=== PATIENT | male | born 1980 | race African-American/Black ===

== ENCOUNTER 2020-10-17 20:30 | Emergency (ER) | payer SELFPAY ==
[~2020-10-17] VITALS: Ht 177.8 cm; Wt 100.0 kg
[2020-10-17 20:41] VITALS: BP 161/96
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
[2020-10-17] MEDS ORDERED: NEOMY/BACITR/POLYMYXIN OINT PACKET. TP ONE (21:15)
[2020-10-17 21:18] LABS: BASO # 0.2 x10^3/uL (0.0-0.2); BASO % 1 % (0-3); EOS # 0.1 x10^3/uL (0.0-0.7); EOS % 1 % (0-3); HEMATOCRIT 41.5 % (39.0-53.0); HEMOGLOBIN 13.7 g/dL (13.0-17.5); LYMPH # 3.2 x10^3/uL (1.0-4.8); LYMPH % 24 % (24-48); MEAN CORPUSCULAR HEMOGLOBIN 32 pg (25-35); MEAN CORPUSCULAR HGB CONC 33 g/dL (31-37); MEAN CORPUSCULAR VOLUME 97 fL (79-100); MONO # 0.9 x10^3/uL (0.0-1.1); MONO % 7 % (0-9); NEUT % 67 % (31-73); PLATELET COUNT 347 x10^3/uL (140-400); RED BLOOD COUNT 4.28 x10^6/uL (4.30-5.70); RED CELL DISTRIBUTION WIDTH 14.6 % (11.5-14.5); WHITE BLOOD COUNT 13.4 x10^3/uL (4.0-11.0)
[2020-10-17 21:26] LABS: CALCIUM 9.2 mg/dL (8.5-10.1); GFR 99.6; POTASSIUM 3.1 mmol/L (3.5-5.1)
[2020-10-17 21:32] LABS: ALBUMIN 3.2 g/dL (3.4-5.0); ALBUMIN/GLOBULIN RATIO 0.9 (1.0-1.7); TOTAL BILIRUBIN 0.6 mg/dL (0.2-1.0); TOTAL PROTEIN 6.6 g/dL (6.4-8.2)
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
--- NOTE | 2020-10-17 22:21 | RAD ---
Exam: Left elbow 3 views. Left humerus 2 views. Right hand 3 views INDICATION: Rolled rash, pain in the arm TECHNIQUE: Frontal and lateral views the left humerus. Frontal, lateral and oblique views of the left elbow. Frontal, lateral oblique views of the right hand Comparisons: None FINDINGS: Elbow: Bone mineralization is normal. No acute or healed fractures. Soft tissues are unremarkable. Joint spa lencho are well-maintained. Humerus: Bone mineralization is normal. No acute or healed fractures. Soft tissues are unremarkable. Joint spa len[place] are well-maintained. Hand: Bone mineralization is normal. No acute or healed fractures. Soft tissues are unremarkable. Joint spa len[place] are well-maintained. IMPRESSION: 1. No acute osseous abnormality of the right hand. 2. No acute osseous abnormality of the left humerus 3. No acute osseous abnormality left elbow Electronically signed by: Cori Guillermo MD (10/17/2020 10:19 PM) [facility]
[2020-10-17] MEDS ORDERED: LIDOCAINE 1% Multi-Dose 20 ML VIAL. ONE (23:24)
[2020-10-17] MEDS ORDERED: NEOM28OI21 TP (23:29)
== END 2020-10-18 00:21 | disposition home or self-care (01) ==
LOC: ER 20:30
DX: S01.81XA Laceration without foreign body of other part of head, initial encounter (principal); S40.812A Abrasion of left upper arm, initial encounter; V27.4XXA Motorcycle driver injured in collision with fixed or stationary object in traffic accident, initial encounter; Y92.488 Other paved roadways as the place of occurrence of the external cause; Y93.89 Activity, other specified; Y99.8 Other external cause status; F17.200 Nicotine dependence, unspecified, uncomplicated
CPT/HCPCS: 12011; 36415; 70450; 72125; 73060; 73080; 73130; 80053; 85025; 99285; G0480

== ENCOUNTER 2020-10-24 09:23 | Emergency (ER) | payer SELFPAY ==
[~2020-10-24] VITALS: Ht 188 cm; Wt 136.0 kg
[~2020-10-24 09:23] MED LIST: NEOM28OI21 TP
[2020-10-24 11:52] VITALS: BP 147/96
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
== END 2020-10-24 13:00 | disposition home or self-care (01) ==
LOC: ER 09:23
DX: M79.10 Myalgia, unspecified site (principal); F17.200 Nicotine dependence, unspecified, uncomplicated
CPT/HCPCS: 99281

== ENCOUNTER 2021-01-28 20:47 | Emergency (ER) | payer MEDICAID ==
[~2021-01-28] VITALS: Ht 182.9 cm; Wt 90.9 kg
[~2021-01-28 20:47] MED LIST changes: -NEOM28OI21 TP; +NEOM28OI48 TP
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
[2021-01-28] MEDS ORDERED: ETOMIDATE 20 MG/10 ML VIAL. IV ONE (21:30)
[2021-01-28] MEDS ORDERED: fentaNYL PF VIAL 100 MCG/2 ML VIAL IVP ONE (21:30)
[2021-01-28] MEDS ORDERED: IV NORMAL SALINE 1000ML BAG 1,000 ML IV ONE (21:30)
--- NOTE | 2021-01-28 21:40 | RAD ---
Exam: Right shoulder 2 views INDICATION: Pain TECHNIQUE: Frontal view of the right shoulder and transscapular Y views Comparisons: None FINDINGS: There is a anterior right shoulder dislocation. No acute or healed fractures. Visualized soft tissues are unremarkable. Joint spaces are well-maintained. IMPRESSION: Right anterior shoulder dislocation. Electronically signed by: Cori Guillermo MD (01/28/2021 9:37 PM) [facility]
[2021-01-28 21:45] VITALS: BP 112/69
[2021-01-28 22:03] VITALS: BP 152/97
--- NOTE | 2021-01-28 22:58 | RAD ---
Exam: Right shoulder one view INDICATION: Status post sedation with reduction TECHNIQUE: Frontal view of the right shoulder Comparisons: None FINDINGS: Improved alignment at the right glenohumeral joint. Bone mineralization is normal. No acute or healed fractures. Joint spaces are well-maintained. IMPRESSION: Improved alignment at the right glenohumeral joint. Electronically signed by: Cori Guillermo MD (01/28/2021 10:56 PM) [facility]
== END 2021-01-28 23:33 ==
LOC: EEVIPCON 20:47 → ER 20:47
DX: S43.004A Unspecified dislocation of right shoulder joint, initial encounter (principal); F17.200 Nicotine dependence, unspecified, uncomplicated; Y08.89XA Assault by other specified means, initial encounter; Y93.89 Activity, other specified; Y92.89 Other specified places as the place of occurrence of the external cause; Y99.8 Other external cause status
CPT/HCPCS: 23650; 73020; 73030; 96360; 99285; J3010; J3490; J7030